=== PATIENT | male | born 1980 | race African-American/Black ===

== ENCOUNTER 2020-10-04 01:51 | Emergency (ER) | payer OTHER ==
[~2020-10-04] VITALS: Ht 172.7 cm; Wt 49.9 kg
[2020-10-04 02:18] LABS: ABSOLUTE NEUTROPHILS 2.4 thou/uL (1.4-8.2); EOSINOPHILS 0.4 % (0.0-3.0); HEMOGLOBIN 10.6 gm/dL (14.0-18.0); LYMPHOCYTES 40.3 % (24.0-44.0); MCH 31.1 pg (26.0-34.0); MCHC 33.2 g/dL (28.0-37.0); MCV 93.7 fL (80.0-100.0); MONOCYTES 10.1 % (1.0-8.0); PLATELET COUNT 310 thou/uL (150-400); POLYS 48.2 % (36.0-66.0); RBC 3.42 mil/uL (4.50-6.00); RDW 16.5 % (10.5-14.5); WBC 4.9 thou/uL (4.0-11.0)
[2020-10-04 02:23] LABS: CREATININE 1.5 mg/dL (0.7-1.3); POTASSIUM 3.6 mmol/L (3.5-5.1)
[2020-10-04 02:29] LABS: ALBUMIN 2.4 g/dL (3.4-5.0); TOTAL BILIRUBIN 0.2 mg/dL (0.2-1.0)
[2020-10-04] MEDS ORDERED: CARVEDILOL6.25 M1 PO (02:39)
[2020-10-04] MEDS ORDERED: AMLODIPINE BESY10 MG PO (02:39)
[2020-10-04 02:54] LABS: URINE BILIRUBIN NEGATIVE (Negative); URINE BLOOD NEGATIVE (Negative); URINE CLARITY CLEAR; URINE COLOR YELLOW; URINE GLUCOSE-RANDOM* 1+ (Negative); URINE KETONES NEGATIVE (Negative); URINE LEUKOCYTES-REFLEX NEGATIVE (Negative); URINE NITRITE-REFLEX NEGATIVE (Negative); URINE PROTEIN (DIPSTICK) NEGATIVE (Negative); URINE SPECIFIC GRAVITY 1.015 (1.005-1.035); URINE UROBILINOGEN 0.2 E.U./dl (0.2-1.0)
[2020-10-04 04:11] VITALS: BP 101/53
--- NOTE | 2020-10-04 06:49 | EKG ---
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 : 1980 Requested By: Derick Isaacs Order Number: [id number] MD: Julian Castanon Measurements Intervals [place] Rate: 120 P: 23 ME: 97 QRS: 56 QRSD: 102 T: 58 QT: 347 QTc: 491 Interpretive Statements Sinus tachycardia Probable left ventricular hypertrophy Borderline prolonged QT interval No previous ECG available for comparison Electronically Signed On 10-04-2020 6:49:16 CDT by Julian Castanon [email or web address] <ELECTRONICALLY SIGNED> By: Julian Castanon MD, [facility] 10/04/20 0649 0208 0208 Julian Castanon MD, FACC /EPI
== END 2020-10-04 04:10 | disposition home or self-care (01) ==
LOC: ER 01:51
PROVIDERS: Emergency Medicine
DX: E11.65 Type 2 diabetes mellitus with hyperglycemia (principal); E86.0 Dehydration; R53.1 Weakness; R11.2 Nausea with vomiting, unspecified; I10 Essential (primary) hypertension; Z79.899 Other long term (current) drug therapy; Z89.511 Acquired absence of right leg below knee

== ENCOUNTER 2020-10-26 08:55 | Inpatient (IN) | payer OTHER ==
[2020-10-26] VITALS (39 sets, daily range): BP systolic 91–134; BP diastolic 61–88
[~2020-10-26] VITALS: Ht 165.1 cm; Wt 49.0 kg
--- NOTE | ~2020-10-26 | EMS ---
[address] [address] EMS Patient Care Report Name: ZACKARY ELLISON Room #: 170-6 ADM IN M.R.#: [id number] Admission: 10/26/20 Attend Phys: Sukhjinder Galloway MD Discharge: Date of : 78 Report #: [id number] THIS REPORT FOR: //name// Report Transmitted: 10/26/2020 11:06 EMS Care Summary [place], [place]/[facility] Incident [id number] @ 10/26/2020 08:19 Incident Location [address] [place] [address] 107 Patient ZACKARY ELLISON Male, 40 Years 1980 Patient Address [address] [place] [address] Patient History Diabetes,Hypertension (HTN),Amputee,Alcohol Abuse, Patient Allergies No known allergies, Patient Medications Lisinopril, Insulin, Lantus, Humalog, Chief Complaint HYPOGLYCEMIA/ ALTERED MENTAL STATUS Disposition Transported [place] Dispatch Reason Diabetic Problem Transported To [facility] Narrative DISPATCHED TO A DIABETIC AT THE [facility]. ARRIVED ON SCENE TO FIND FIRE CREW OBTAINING VITALS AND BLOOD GLUCOSE ON PATIENT LYING SUPINE IN HIS BED. PATIENT WAS UNRESPONSIVE TO PAIN BUT MAINTAINING HIS AIRWAY AND HAD ADEQUATE RESPIRATIONS. [facility] STAFF SAID THEY SPOKE WITH HIM AND HE WAS ACTING [address] [address] EMS Patient Care Report Name: ZACKARY ELLISON Room #: 170-6 [facility] IN [facility]#: [id number] Admission: 10/26/20 Attend Phys: Sukhjinder Galloway MD Discharge: Date of : 78 Report #: [id number] NORMAL AND TALKING WITH THEM AROUND 07:00 THIS MORNING. THEY SAID HE WAS DRINKING LAST NIGHT. WHEN THEY CAME TO CHECK ON HIM JUST PRIOR TO CALLING EMS THEY SAID HE WAS UNRESPONSIVE WITH A BLOOD GLUCOSE OF 41. THEY ADMINISTERED 2 DOSES OF GLUCAGON IM RAISING HIS BLOOD GLUCOSE TO 67 UPON EMS ARRIVAL. PATIENT WAS UNRESPONSIVE TO PAIN. HE WAS LIFTED TO THE COT, SECURED WITH STRAPS, AND MOVED TO THE AMBULANCE. PATIENT VITALS WERE REOBTAINED. AN IV WAS ESTABLISHED, HE WAS PLACED ON A 3 LEAD AND ADMINISTERED D10. PATIENT WAS TRANSPORTED TO THE HOSPITAL WITH VITALS, BLOOD GLUCOSE, AND INTERVENTIONS MONITORED. DURING TRANSPORT PATIENT BEGAN POSTURING, AND HE REMAINED UNRESPONSIVE TO PAIN. TRANSPORT WAS UPGRADED. PATIENT MAINTAINED HIS AIRWAY AND HAD ADEQUATE RESPIRATIONS DURING TRANSPORT. UPON ARRIVAL AT THE HOSPITAL PATIENT WAS MOVED INTO THE ED ON THE COT AND LIFTED OVER TO THE HOSPITAL BED PATIENT CARE WAS TURNED OVER TO ED NURSING STAFF. Initial Vitals @08:34P: 169,SpO2: 93, @08:44P: 118,BP: 134/86,SpO2: 95, @08:36P: 103,BP: 119/79,CO: 9,SpO2: 94, @08:51P: 100, @08:33P: 80,R: 20,BP: 138/80,Pain: 0/10,GCS: 3,Glucose: 67,CO: 11,SpO2: 91,Revised Trauma: 8, @08:50P: 100,R: 24,BP: 136/89,Pain: 0/10,GCS: 5,Glucose: 239,CO: 2,SpO2: 98,Revised Trauma: 9, Assessments @08:27MENTAL:Unresponsive,SKIN:Cold,HEENT:Head/Face: No Abnormalities,Neck/Airway: No Abnormalities,LUNG SOUNDS:General: No Abnormalities,Left Upper: No Abnormalities,Right Upper: No Abnormalities,Left Lower: No Abnormalities,Right Lower: No Abnormalities,ABDOMEN:General: No Abnormalities,Left Upper: No Abnormalities,Right Upper: No Abnormalities,Left Lower: No Abnormalities,Right Lower: No Abnormalities,PELVIS//GI:No Abnormalities,EXTREMITIES:Left Arm: Other,Right Arm: Other,Right Leg: Other,Capillary Refill: Right Upper: 3 Sec,Left Leg: No Abnormalities,PULSE:Radial: 2+ Normal,NEURO:Other, Impression Diabetic Hypoglycemia Procedures @08:5112-Lead ECG@08:27ALS AssessmentResponse: UnchangedSucceeded@08:33Saline Lock 0cc (20 ga) Site: Antecubital-LeftResponse: UnchangedFailed@08:34Saline Lock 10cc (20 ga) Site: Forearm-LeftResponse: UnchangedSucceeded@08:35Dextrose 10% - 125 Milliliters (ml) - Intravenous (IV)Response: Unchanged@08:34Oxygen FlowRate: 4 Device: Nasal Cannula (NC) Response: UnchangedSucceeded@08:333-Lead ECGResponse: UnchangedSucceeded [address] [address] EMS Patient Care Report Name: ARIANNA ELLISONN Basia Room #: 170-6 ADM IN ..#: [id number] Admission: 10/26/20 Attend Phys: Sukhjinder Galloway MD Discharge: Date of : 78 Report #: [id number] Timeline 08:19,Call Received 08:19,Dispatch Notified 08:19,Dispatched 08:21,En Route 08:25,On Scene 08:27,At Patient 08:27,ALS Assessment,Response: UnchangedSucceeded, 08:33,Saline Lock 0cc 20 ga Site: Antecubital-Left,Response: UnchangedFailed, 08:33,3-Lead ECG,Response: UnchangedSucceeded, 08:33,BP: 138/80 M,PULSE: 80,RR: 20 R,SPO2: 91 Ox,ETCO2: ,B,PAIN: 0,GCS: 3, 08:34,Saline Lock 10cc 20 ga Site: Forearm-Left,Response: UnchangedSucceeded, 08:34,Oxygen FlowRate: 4 Device: Nasal Cannula (NC) Response: UnchangedSucceeded, 08:34,BP: / M,PULSE: 169,RR: R,SPO2: 93 Ox,ETCO2: ,BG: ,PAIN: ,GCS: , 08:35,Dextrose 10% - 125 Milliliters (ml) - Intravenous (IV),Response: Unchanged 08:36,BP: 119/79 M,PULSE: 103,RR: R,SPO2: 94 Ox,ETCO2: ,BG: ,PAIN: ,GCS: , 08:40,Depart Scene 08:44,BP: 134/86 M,PULSE: 118,RR: R,SPO2: 95 Ox,ETCO2: ,BG: ,PAIN: ,GCS: , 08:50,BP: 136/89 M,PULSE: 100,RR: 24 R,SPO2: 98 Ox,ETCO2: ,B,PAIN: 0,GCS: 5, 08:51,12-Lead ECG, 08:51,BP: / M,PULSE: 100,RR: R,SPO2: Ox,ETCO2: ,BG: ,PAIN: ,GCS: , 08:51,At Destination 09:19,Call Closed Disclaimer v1.1 Copyright 202 [employer] This EMS Care Summary contains data elements from the applicable legal record (which may be displayed differently). It is designed to provide pertinent information for the following purposes: continuity of care, clinical quality, and state data reporting. The complete legal record is available to ED staff and administrators of the receiving hospital in [employer] Patient Tracker. All data is provided "as is."
--- NOTE | ~2020-10-26 | EEG ---
[facility] [place] [address] ELECTROENCEPHALOGRAM Name: ZACKARY ELLISON Room #: 246-P [facility] IN M.R.#: [id number] Admission: 10/26/20 Attend Phys: Sukhjinder Galloway MD Discharge: Date of : 78 Report #: [id number] THIS REPORT FOR: //name// DOC #: [id number] Ajay Ortega MD DATE OF SERVICE: 11/01/2020 This patient continues with altered mental status. His prior EEGs demonstrate a lot of artifacts. EEG was done to see if a clean EEG can be obtained to better evaluate this patient. This EEG is somewhat better than the last EEG, but still has a lot of muscle artifacts. When the EEG is interpretable, it does show a background activity of about 7 Hz and 10 microvolt. That time there is no epileptiform activity. Photic stimulation is unremarkable. IMPRESSION: This patient's EEG is slow and poorly formed. That can be consistent with encephalopathy. But EEG is still masked by a lot of artifacts, but is better than the prior EEGs. Ajay Ortega MD PK/SERGE By: 1241 1429 Ajay Ortega MD /nt
[~2020-10-26 08:55] MED LIST: AMLODIPINE BESY10 MG PO; CARVEDILOL12.5 MG PO; CARVEDILOL6.25 M1 PO; FREESTYLE LIBR1 EAC2 MISCELL; HUMALOG100 UNIT/1 SUBQ; LANTUS SUBQ
[2020-10-26 09:40] LABS: URINE BILIRUBIN NEGATIVE (Negative); URINE BLOOD NEGATIVE (Negative); URINE CLARITY CLEAR; URINE COLOR YELLOW; URINE GLUCOSE-RANDOM* NEGATIVE (Negative); URINE KETONES NEGATIVE (Negative); URINE LEUKOCYTES-REFLEX NEGATIVE (Negative); URINE NITRITE-REFLEX NEGATIVE (Negative); URINE PROTEIN (DIPSTICK) NEGATIVE (Negative); URINE SPECIFIC GRAVITY 1.015 (1.005-1.035); URINE UROBILINOGEN 0.2 E.U./dl (0.2-1.0)
[2020-10-26 09:47] LABS: ABSOLUTE NEUTROPHILS 2.8 thou/uL (1.4-8.2); BASOPHILS 1.2 % (0.0-2.0); EOSINOPHILS 0.2 % (0.0-3.0); HEMATOCRIT 26.9 % (42.0-52.0); HEMOGLOBIN 8.9 gm/dL (14.0-18.0); LYMPHOCYTES 43.3 % (24.0-44.0); MCH 30.8 pg (26.0-34.0); MCHC 32.9 g/dL (28.0-37.0); MCV 93.7 fL (80.0-100.0); MONOCYTES 5.6 % (1.0-8.0); PLATELET COUNT 615 thou/uL (150-400); POLYS 49.7 % (36.0-66.0); RBC 2.87 mil/uL (4.50-6.00); RDW 15.7 % (10.5-14.5); WBC 5.6 thou/uL (4.0-11.0)
[2020-10-26 09:49] LABS: AMP/METHAMP Negative (Negative); BARBITURATES Negative (Negative); BENZODIAZEPINES Negative (Negative); COCAINE Negative (Negative); METHADONE Negative (Negative); OPIATES Negative (Negative); PCP Negative (Negative)
[2020-10-26 10:01] LABS: ANION GAP 9 mmol/L (7-16); BUN 9 mg/dL (7-18); CALCIUM 8.1 mg/dL (8.5-10.1); CHLORIDE 108 mmol/L (98-107); CO2 22 mmol/L (21-32); CREATININE 0.5 mg/dL (0.7-1.3); GLUCOSE 199 mg/dL (74-106); POTASSIUM 4.7 mmol/L (3.5-5.1); SODIUM 139 mmol/L (136-145)
[2020-10-26 10:05] LABS: APTT 29.7 Seconds (24.5-32.8); INR 1.14; PROTIME 12.3 Seconds (10.5-12.1)
[2020-10-26 10:11] LABS: ALBUMIN 1.9 g/dL (3.4-5.0); DIRECT BILIRUBIN < 0.1 mg/dL (<0.1-0.2); SGOT 26 U/L (15-37); SGPT 34 U/L (30-65); TOTAL BILIRUBIN 0.2 mg/dL (0.2-1.0); TOTAL PROTEIN 5.8 g/dL (6.4-8.2); TROPONIN-I <0.06 ng/mL (<0.06)
[2020-10-26 10:14] LABS: BE(vivo) -3.6 mmol/L (-2 to +3); PCO2 35.9 mmHg (35.0-45.0); PO2 70.3 mmHg (80.0-100.0); pH 7.384 (7.360-7.450); sO2 94.1 % (92.0-98.0)
--- NOTE | 2020-10-26 12:36 | EKG ---
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 : 1980 Requested By: Alberto Saez Order Number: [id number] MD: Marty Goss Measurements Intervals [place] Rate: 108 P: 0 MN: QRS: 66 QRSD: 90 T: QT: 347 QTc: 465 Interpretive Statements Poor quality data, interpretation may be affected Probable sinus tachycardia Compared to ECG 10/13/2020 09:42:24 Recommend repeat tracing in the absence of artifact Electronically Signed On 10-26-2020 12:36:44 CDT by Marty Goss [email or web address] <ELECTRONICALLY SIGNED> By: Marty Goss MD, [facility] 10/26/20 1236 0 0 Marty Goss MD, [facility] /EPI
[2020-10-27] VITALS (39 sets, daily range): BP systolic 94–139; BP diastolic 69–100
[2020-10-27 04:37] LABS: HEMATOCRIT 25.8 % (42.0-52.0); HEMOGLOBIN 8.7 gm/dL (14.0-18.0); MCHC 33.8 g/dL (28.0-37.0); MCV 91.9 fL (80.0-100.0); RBC 2.81 mil/uL (4.50-6.00); RDW 15.4 % (10.5-14.5)
[2020-10-27 04:47] LABS: CALCIUM 7.5 mg/dL (8.5-10.1); CREATININE 0.5 mg/dL (0.7-1.3)
[2020-10-27 04:49] LABS: POTASSIUM 3.4 mmol/L (3.5-5.1)
[2020-10-27 05:31] LABS: WBC 27.4 thou/uL (4.0-11.0)
[2020-10-27 18:57] LABS: HEMATOCRIT 24.3 % (42.0-52.0); HEMOGLOBIN 8.5 gm/dL (14.0-18.0); MCH 32.1 pg (26.0-34.0); MCHC 35.1 g/dL (28.0-37.0); MCV 91.7 fL (80.0-100.0); PLATELET COUNT 590 thou/uL (150-400); RBC 2.65 mil/uL (4.50-6.00); RDW 15.8 % (10.5-14.5); WBC 28.4 thou/uL (4.0-11.0)
[2020-10-27 20:03] LABS: ABSOLUTE NEUTROPHILS 25.6 thou/uL (1.4-8.2)
[2020-10-27 20:06] LABS: PLATELET ESTIMATE INCREASED
[2020-10-28] VITALS (26 sets, daily range): BP systolic 122–173; BP diastolic 78–107
[2020-10-28 05:46] LABS: HEMATOCRIT 25.1 % (42.0-52.0); HEMOGLOBIN 8.4 gm/dL (14.0-18.0); MCH 30.8 pg (26.0-34.0); MCHC 33.6 g/dL (28.0-37.0); MCV 91.8 fL (80.0-100.0); RBC 2.74 mil/uL (4.50-6.00); WBC 23.9 thou/uL (4.0-11.0)
[2020-10-28 05:55] LABS: CALCIUM 7.4 mg/dL (8.5-10.1); CREATININE 0.4 mg/dL (0.7-1.3); POTASSIUM 3.4 mmol/L (3.5-5.1)
[2020-10-29] VITALS (24 sets, daily range): BP systolic 136–169; BP diastolic 88–107
[2020-10-29 05:47] LABS: CALCIUM 7.2 mg/dL (8.5-10.1); CREATININE 0.4 mg/dL (0.7-1.3)
[2020-10-29 05:55] LABS: HEMATOCRIT 24.2 % (42.0-52.0); HEMOGLOBIN 7.9 gm/dL (14.0-18.0); MCH 29.7 pg (26.0-34.0); MCHC 32.5 g/dL (28.0-37.0); MCV 91.6 fL (80.0-100.0); POTASSIUM 2.6 mmol/L (3.5-5.1); RBC 2.64 mil/uL (4.50-6.00); WBC 13.9 thou/uL (4.0-11.0)
[2020-10-29 14:44] LABS: CSF RBC 103 /mm3
[2020-10-29 14:46] LABS: CSF WBC 13 /mm3 (0-10)
[2020-10-29 14:47] LABS: CSF CLARITY CLEAR; CSF COLOR COLORLESS; VOLUME 8 ml
[2020-10-29 14:51] LABS: CSF GLUCOSE 81 mg/dL (40-70); CSF PROTEIN 148 mg/dL (15-45)
[2020-10-29 17:56] LABS: CSF POLYS 79 %
[2020-10-29 17:57] LABS: CSF EOSINOPHILS 3 %; CSF LYMPHOCYTES 16 % (40-80)
[2020-10-30] VITALS (23 sets, daily range): BP systolic 119–159; BP diastolic 73–107
[2020-10-30 06:11] LABS: HEMATOCRIT 25.1 % (42.0-52.0); HEMOGLOBIN 8.3 gm/dL (14.0-18.0); MCH 30.4 pg (26.0-34.0); MCHC 33.3 g/dL (28.0-37.0); MCV 91.4 fL (80.0-100.0); RBC 2.75 mil/uL (4.50-6.00); RDW 15.9 % (10.5-14.5); WBC 7.7 thou/uL (4.0-11.0)
[2020-10-30 06:18] LABS: CALCIUM 7.5 mg/dL (8.5-10.1); CREATININE 0.5 mg/dL (0.7-1.3)
[2020-10-30 09:59] LABS: HSV PCR SOURCE CSF
[2020-10-30 13:09] LABS: ALBUMIN 1.6 g/dL (3.4-5.0); CALCIUM 7.6 mg/dL (8.5-10.1); CREATININE 0.5 mg/dL (0.7-1.3); DIRECT BILIRUBIN 0.1 mg/dL (<0.1-0.2); PHOSPHORUS 2.9 mg/dL (2.5-4.9); POTASSIUM 3.3 mmol/L (3.5-5.1); TOTAL BILIRUBIN 0.2 mg/dL (0.2-1.0); TOTAL PROTEIN 5.2 g/dL (6.4-8.2)
[2020-10-30 13:34] LABS: MAGNESIUM 0.9 mg/dL (1.8-2.4)
[2020-10-31] VITALS (22 sets, daily range): BP systolic 135–172; BP diastolic 82–109
[2020-10-31 07:57] LABS: ALBUMIN 1.6 g/dL (3.4-5.0); CALCIUM 7.6 mg/dL (8.5-10.1); CREATININE 0.5 mg/dL (0.7-1.3); MAGNESIUM 1.9 mg/dL (1.8-2.4); PHOSPHORUS 2.5 mg/dL (2.5-4.9); POTASSIUM 3.4 mmol/L (3.5-5.1); TOTAL BILIRUBIN 0.3 mg/dL (0.2-1.0); TOTAL PROTEIN 5.6 g/dL (6.4-8.2)
--- NOTE | 2020-10-31 14:16 | HC ---
[facility] [place] [address] CONSULTATION Name: ZACKARY ELLISON Room #: 246-P [facility] IN .R.#: [id number] Admission: 10/26/20 Attend Phys: Sukhjinder Galloway MD Discharge: Date of : 78 Report #: [id number] THIS REPORT FOR: cc: FAM - No family physician/PCP FAM - No family physician/PCP Ajay Ortega MD ~ DOC #: [id number] Ajay Ortega MD DATE OF SERVICE: 10/26/2020 HISTORY OF PRESENT ILLNESS: This is a 40-year-old male patient who is unable to provide any history at all. The patient does not say anything and he is pretty much unresponsive. There is no family member here, so I talked to the nurse and reviewing his records. This patient is admitted with hypoglycemia as well as alcohol abuse. He is also running temperature according to the nurses. His last temperature was 100.2, but when he came in, his temperature was normal. REVIEW OF SYSTEMS: A 14-point review of system is positive for diabetes, hypertension, amputations in the leg, alcohol abuse pretty significant, hypoglycemia, drug screen was negative. Even in the Emergency Room, he was not responding to any stimulus. That is the 14-point review of system I can get. PAST MEDICAL HISTORY: Positive for leg amputation and alcohol abuse. FAMILY HISTORY: Unavailable. SOCIAL HISTORY: Positive for alcohol abuse. PHYSICAL EXAMINATION: NEUROLOGIC: This patient did not wake up for me. It looks like when he was admitted, he was tachypneic and he was hypoxic, as per notes plus in the Emergency Room. He was also hypothermic. Now, he does not say anything. He does not have any reflexes. He does not have any meningeal sign, but the rest of the neurological examination was attempted, but is not possible. CARDIAC EXAMINATIONS: Appear unremarkable. VITAL SIGNS: Blood pressure is 109/76, pulse is 109. LABORATORY DATA: White count is normal, but the platelet count is high. He did have actually a CT and as well as a CT angiography as I understand from the record. They were mostly unremarkable. IMPRESSION: This patient presently is severely encephalopathic because of his hypoglycemia, maybe hypoxia and his alcohol intake. I do not think we need to give him any seizure medication at the moment or get an EEG done. Sometime along the line, he will need an MRI whenever he is stable and he is able to cooperate. We will also try to reach the family [place] [address] CONSULTATION Name: ZACKARY ELLISON Room #: 246-P [facility] IN [facility]#: [id number] Admission: 10/26/20 Attend Phys: Sukhjinder Galloway MD Discharge: Date of : 78 Report #: [id number] Thank you very much for this referral. Ajay Ortega MD /MAY/DONTA <ELECTRONICALLY SIGNED> By: Ajay Ortega MD 10/31/20 1416 1716 1113 Ajay Ortega MD /nt
--- NOTE | 2020-10-31 14:17 | EEG ---
[facility] [place] [address] ELECTROENCEPHALOGRAM Name: ZACKARY ELLISON Room #: 246-P [facility] IN M.R.#: [id number] Admission: 10/26/20 Attend Phys: Sukhjinder Galloway MD Discharge: Date of : 78 Report #: [id number] THIS REPORT FOR: //name// DOC #: [id number] Ajay Ortega MD DATE OF SERVICE: 10/28/2020 This EEG was repeated because the first one had a lot of artifact. Unfortunately, this EEG also has a lot of artifact. EEG is masked by a lot of artifact, but small portion of this EEG is interpretable, which shows low voltage activity, which is difficult to determine the frequency. Photic stimulation is unremarkable. IMPRESSION: The EEG continued to be masked by a lot of artifact, but does not appear to be showing any active epileptiform activity. Part of the EEG, which is very small, is interpretable and that is very slow and only have minimal voltage. Thank you very much for this referral. Ajay Ortega MD PK/SERGE <ELECTRONICALLY SIGNED> By: Ajay Ortega MD 10/31/20 1417 1334 1356 Ajay Ortega MD /nt
--- NOTE | 2020-10-31 14:17 | EEG ---
[facility] [place] [address] ELECTROENCEPHALOGRAM Name: ZACKARY ELLISON Room #: 246-P [facility] IN M.R.#: [id number] Admission: 10/26/20 Attend Phys: Sukhjinder Galloway MD Discharge: Date of : 78 Report #: [id number] THIS REPORT FOR: //name// DOC #: [id number] Ajay Ortega MD DATE OF SERVICE: 10/26/2020 This patient is being evaluated for altered mental status. EEG was done by placing the electrode by standard 10-20 system of electrode placement. Both referential and sequential montages were used for recording. Lot of muscle artifact is present. Whenever the EEG is interpretable, it shows a background activity of about 5-6 Hz and 30 microvolt. Photic stimulation is unremarkable. The patient was unresponsive. IMPRESSION: This EEG is intermixed with a lot of artifact. Only a small portion of this EEG is interpretable. That EEG is abnormal, but nonspecifically. That abnormality can occur with dementia, encephalopathy, effect of psychotropic medication, etc. Clinical correlation is recommended. Ajay Ortega MD PK/PUN <ELECTRONICALLY SIGNED> By: Ajay Ortega MD 10/31/20 1417 0937 1001 Ajay Ortega MD /amrik
[2020-11-01] VITALS (16 sets, daily range): BP systolic 124–165; BP diastolic 89–111
[2020-11-01 00:06] LABS: HSV 1 DNA Negative (Negative); HSV 2 DNA Negative (Negative)
[2020-11-01 05:27] LABS: CALCIUM 7.9 mg/dL (8.5-10.1); CREATININE 0.5 mg/dL (0.7-1.3); MAGNESIUM 1.7 mg/dL (1.8-2.4); PHOSPHORUS 3.1 mg/dL (2.5-4.9); POTASSIUM 3.2 mmol/L (3.5-5.1)
[2020-11-01 20:06] LABS: SYPHILIS AB Non Reactive (Non Reactive)
[2020-11-02 07:34] VITALS: BP 150/105
[2020-11-02 08:32] LABS: CALCIUM 8.6 mg/dL (8.5-10.1); CREATININE 0.5 mg/dL (0.7-1.3); MAGNESIUM 1.7 mg/dL (1.8-2.4); PHOSPHORUS 3.1 mg/dL (2.6-4.7)
[2020-11-02 16:23] VITALS: BP 120/71; BP 134/99
[2020-11-02 20:20] VITALS: BP 156/100
[2020-11-03 07:17] LABS: ABSOLUTE NEUTROPHILS 3.5 thou/uL (1.4-8.2); EOSINOPHILS 0.9 % (0.0-3.0); HEMATOCRIT 24.6 % (42.0-52.0); HEMOGLOBIN 8.2 gm/dL (14.0-18.0); LYMPHOCYTES 35.6 % (24.0-44.0); MCH 30.4 pg (26.0-34.0); MCHC 33.4 g/dL (28.0-37.0); MCV 91.1 fL (80.0-100.0); MONOCYTES 14.2 % (1.0-8.0); PLATELET COUNT 533 thou/uL (150-400); POLYS 48.3 % (36.0-66.0); RDW 15.8 % (10.5-14.5); WBC 7.3 thou/uL (4.0-11.0)
[2020-11-03 07:32] LABS: CALCIUM 8.7 mg/dL (8.5-10.1); CREATININE 0.5 mg/dL (0.7-1.3); MAGNESIUM 1.7 mg/dL (1.8-2.4); PHOSPHORUS 3.9 mg/dL (2.6-4.7); POTASSIUM 4.5 mmol/L (3.5-5.1)
[2020-11-03 15:24] VITALS: BP 148/76
[2020-11-03 15:29] VITALS: BP 152/107
[2020-11-03 19:32] VITALS: BP 133/100
[2020-11-04 04:05] VITALS: BP 114/84
[2020-11-04 07:51] LABS: CALCIUM 9.1 mg/dL (8.5-10.1); CREATININE 0.5 mg/dL (0.7-1.3); PHOSPHORUS 3.7 mg/dL (2.6-4.7); POTASSIUM 4.7 mmol/L (3.5-5.1); TOTAL BILIRUBIN 0.2 mg/dL (0.2-1.0); TOTAL PROTEIN 6.6 g/dL (6.4-8.2)
[2020-11-04 17:06] LABS: CSF VDRL Non Reactive (Non Rea:<1:1)
[2020-11-04 18:23] VITALS: BP 158/93
[2020-11-04 19:38] VITALS: BP 159/90
[2020-11-05 04:46] VITALS: BP 154/95
[2020-11-05 06:14] LABS: ALBUMIN 2.1 g/dL (3.4-5.0); CALCIUM 8.7 mg/dL (8.5-10.1); CREATININE 0.5 mg/dL (0.7-1.3); MAGNESIUM 1.6 mg/dL (1.8-2.4); PHOSPHORUS 3.4 mg/dL (2.5-4.9); POTASSIUM 4.5 mmol/L (3.5-5.1); TOTAL BILIRUBIN 0.2 mg/dL (0.2-1.0); TOTAL PROTEIN 6.8 g/dL (6.4-8.2)
[2020-11-05 08:20] VITALS: BP 166/100
[2020-11-05 10:45] VITALS: BP 150/97
[2020-11-05 12:55] LABS: HEMATOCRIT 25.7 % (42.0-52.0); HEMOGLOBIN 8.5 gm/dL (14.0-18.0); MCH 30.8 pg (26.0-34.0); MCHC 32.9 g/dL (28.0-37.0); MCV 93.6 fL (80.0-100.0); RBC 2.75 mil/uL (4.50-6.00); RDW 16.4 % (10.5-14.5); WBC 10.7 thou/uL (4.0-11.0)
[2020-11-05 14:51] LABS: APTT 26.3 Seconds (24.5-32.8); INR 0.9; PROTIME 9.9 Seconds (9.3-11.4)
[2020-11-05 15:50] VITALS: BP 135/77
[2020-11-05 20:19] VITALS: BP 146/95
[2020-11-06 05:00] VITALS: BP 138/95
[2020-11-06 06:16] LABS: ALBUMIN 2.2 g/dL (3.4-5.0); CALCIUM 8.9 mg/dL (8.5-10.1); CREATININE 0.4 mg/dL (0.7-1.3); MAGNESIUM 1.9 mg/dL (1.8-2.4); PHOSPHORUS 3.3 mg/dL (2.5-4.9); POTASSIUM 4.1 mmol/L (3.5-5.1); TOTAL BILIRUBIN 0.2 mg/dL (0.2-1.0); TOTAL PROTEIN 7.1 g/dL (6.4-8.2)
[2020-11-06 08:04] VITALS: BP 133/92
[2020-11-06 12:44] LABS: CSF GLUCOSE 97 mg/dL (40-70); CSF PROTEIN 117 mg/dL (15-45)
[2020-11-06 13:22] LABS: CSF CLARITY CLEAR; CSF COLOR COLORLESS; CSF RBC 66 /mm3; CSF WBC 1 /mm3 (0-10); VOLUME 11 ml
[2020-11-06 15:56] VITALS: BP 131/90
[2020-11-06 19:46] VITALS: BP 120/81
[2020-11-07 02:06] LABS: SERUM ALBUMIN 2.8 g/dL (4.0-5.0)
[2020-11-07 05:05] VITALS: BP 144/80
[2020-11-07 06:40] LABS: CREATININE 0.5 mg/dL (0.7-1.3); MAGNESIUM 1.5 mg/dL (1.8-2.4); PHOSPHORUS 3.7 mg/dL (2.6-4.7)
[2020-11-07 15:42] VITALS: BP 167/107
[2020-11-07 17:16] VITALS: BP 129/96
[2020-11-07 20:11] VITALS: BP 143/107
[2020-11-08 07:45] VITALS: BP 148/84
[2020-11-08 10:11] LABS: CREATININE 0.5 mg/dL (0.7-1.3); MAGNESIUM 1.6 mg/dL (1.8-2.4); POTASSIUM 3.9 mmol/L (3.5-5.1)
[2020-11-08 12:07] LABS: CSF IgG 16.7 mg/dL (0.0-10.3)
[2020-11-08 15:15] VITALS: BP 144/101
[2020-11-08 20:48] VITALS: BP 123/84
[2020-11-09 05:42] LABS: CALCIUM 8.8 mg/dL (8.5-10.1); CREATININE 0.5 mg/dL (0.7-1.3); MAGNESIUM 1.5 mg/dL (1.8-2.4); POTASSIUM 3.8 mmol/L (3.5-5.1)
[2020-11-09 05:54] VITALS: BP 114/76
[2020-11-09 07:50] VITALS: BP 122/84
[2020-11-09 15:40] VITALS: BP 104/61
[2020-11-09] MEDS ORDERED: PEPCID20 MG PER TUBE (17:17)
[2020-11-09] MEDS ORDERED: LANTUS SUBQ (17:17)
== END 2020-11-09 19:39 | DRG 637 ==
LOC: ER 08:55 → ICU 11:31 → EROBS 11:31 → ICU 12:49 → 4S 11-01 18:23
PROVIDERS: Emergency Medicine; Internal Medicine; Internal Medicine Pulmonary Disease; Psychiatry & Neurology Neuromuscular Medicine; Specialist; ADMIT Hospitalist; ATTEND Hospitalist
PROC: 02HV33Z Insertion of Infusion Device into Superior Vena Cava, Percutaneous Approach (ICD-10-PCS; principal; 2020-10-26)
PROC: 009U3ZX Drainage of Spinal Canal, Percutaneous Approach, Diagnostic (ICD-10-PCS; 2020-10-29)
PROC: B01B1ZZ Fluoroscopy of Spinal Cord using Low Osmolar Contrast (ICD-10-PCS; 2020-10-29)
PROC: 009U3ZX Drainage of Spinal Canal, Percutaneous Approach, Diagnostic (ICD-10-PCS; 2020-11-06)
PROC: B01B1ZZ Fluoroscopy of Spinal Cord using Low Osmolar Contrast (ICD-10-PCS; 2020-11-06)
PROC: 0DH68UZ Insertion of Feeding Device into Stomach, Via Natural or Artificial Opening Endoscopic (ICD-10-PCS; 2020-11-07)
DX: E11.10 Type 2 diabetes mellitus with ketoacidosis without coma (principal); J96.01 Acute respiratory failure with hypoxia; E43 Unspecified severe protein-calorie malnutrition; G92 Toxic encephalopathy; E87.2 Acidosis; I10 Essential (primary) hypertension; T68.XXXA Hypothermia, initial encounter; F10.129 Alcohol abuse with intoxication, unspecified; E11.51 Type 2 diabetes mellitus with diabetic peripheral angiopathy without gangrene; D72.829 Elevated white blood cell count, unspecified; R13.10 Dysphagia, unspecified; Z20.822 Contact with and (suspected) exposure to COVID-19; Z89.511 Acquired absence of right leg below knee; Z79.4 Long term (current) use of insulin; Z79.899 Other long term (current) drug therapy
CPT/HCPCS: 10078; 10102; 27000; 62110; 62900; 70005

== ENCOUNTER 2020-11-19 14:13 | Inpatient (IN) | payer OTHER ==
[~2020-11-19] VITALS: Ht 175.3 cm; Wt 63.5 kg
[~2020-11-19 14:13] MED LIST changes: +PEPCID20 MG PER TUBE
[2020-11-19 14:14] VITALS: BP 136/73
[2020-11-19 15:47] LABS: LYMPHOCYTES 14.3 % (24.0-44.0)
[2020-11-19 15:49] LABS: ABSOLUTE NEUTROPHILS 8.1 thou/uL (1.4-8.2); BASOPHILS 0.5 % (0.0-2.0); HEMATOCRIT 22.5 % (42.0-52.0); HEMOGLOBIN 7.5 gm/dL (14.0-18.0); MCH 30.4 pg (26.0-34.0); MCHC 33.3 g/dL (28.0-37.0); MCV 91.2 fL (80.0-100.0); MONOCYTES 8.4 % (1.0-8.0); POLYS 74.8 % (36.0-66.0); RBC 2.47 mil/uL (4.50-6.00); RDW 15.7 % (10.5-14.5); WBC 10.9 thou/uL (4.0-11.0)
[2020-11-19 15:51] LABS: CALCIUM 9.8 mg/dL (8.5-10.1); CREATININE 0.7 mg/dL (0.7-1.3); POTASSIUM 5.4 mmol/L (3.5-5.1)
[2020-11-19 15:57] LABS: ALBUMIN 2.3 g/dL (3.4-5.0); TOTAL BILIRUBIN 0.1 mg/dL (0.2-1.0); TOTAL PROTEIN 8.2 g/dL (6.4-8.2)
[2020-11-19 16:19] LABS: ANISOCYTOSIS SLIGHT
[2020-11-19 16:21] LABS: PLATELET COUNT 1032 thou/uL (150-400)
[2020-11-19 16:44] VITALS: BP 114/70
--- NOTE | 2020-11-19 19:08 | NUR ---
Pt transfered from ER. His blood dugar was 34. Administered glucagon and blood sugar came up to 78. Started running NS .9% AT 75ml/hour. Pt was biting at dressing on hands bilaterally. Redressed. Middle knuckle on right side has bone sticking out. He remains a full code. Will need to call mother (Yanet) at [phone] to get admission information.
[2020-11-19 19:25] VITALS: BP 119/93
[2020-11-20 02:16] LABS: HEMOGLOBIN 7.3 gm/dL (14.0-18.0); MCV 91.5 fL (80.0-100.0); MONOCYTES 8.3 % (1.0-8.0); WBC 14.7 thou/uL (4.0-11.0)
[2020-11-20 02:18] LABS: ABSOLUTE NEUTROPHILS 11.1 thou/uL (1.4-8.2); BASOPHILS 0.4 % (0.0-2.0); EOSINOPHILS 1.3 % (0.0-3.0); HEMATOCRIT 21.3 % (42.0-52.0); MCH 31.3 pg (26.0-34.0); MCHC 34.2 g/dL (28.0-37.0); RBC 2.32 mil/uL (4.50-6.00); RDW 15.7 % (10.5-14.5)
[2020-11-20 02:25] LABS: CALCIUM 9.4 mg/dL (8.5-10.1); CREATININE 0.5 mg/dL (0.7-1.3); MAGNESIUM 1.8 mg/dL (1.8-2.4); POTASSIUM 4.8 mmol/L (3.5-5.1)
[2020-11-20 02:26] LABS: PLATELET COUNT 993 thou/uL (150-400)
--- NOTE | 2020-11-20 03:04 | NUR ---
ASSUMED PT CARE AT 1900.PT WAS OBSERVED LYING ON HIS BED TAKING THE DRSG TO HIS FREDY HANDS OFF.ADMISSION COMPLETED WITH THE HELP OF HIS MOM.PTCONSISTENTLY BITES ON HIS HAND.ALL EFFORTS TO REDIRECT HIM DID NOT WORK.CHILD CARE DEVELOPMENT SPECIALIST ON DUTY NOTIFIED,EULA NOTED FOR MITTENS TO BE USED.PT'S BG LOW PRN ORDER FOLLOWED.PT STABLE NOW.PT NPO FOR POSSIBLE SURGERY TODAY.PT ABLE TO REPOSITION SELF IN BED.CALL LIGHT WITHIN REACH.
[2020-11-20 04:11] VITALS: BP 129/86
[2020-11-20 07:25] VITALS: BP 129/88
--- NOTE | 2020-11-20 09:48 | NUR ---
Assumed care of pt at 0700. Pt confused and restless. Pt tries to bite through the mittens. New dressing and new mittens applied on bilateral hands. IVF infusing. PEG tube in place. Pt taken to surgery for rt third digit amputation on his rt hand. Fall precautions in place.
--- NOTE | 2020-11-20 13:27 | NUR ---
Triggered for high nutrition risk. Pt with recent admission and continues with PEG. Currently undergoing surgical amputation of finger and is NPO. If PEG to be used, recommend same formula and rate as last admission based on no significant changes to estimated nutrition needs. Will follow up tomorrow, 11/21/20 when more information is available.
[2020-11-20 14:04] VITALS: BP 115/80
--- NOTE | 2020-11-20 14:14 | NUR ---
ASSESSMENT: CM REVIEWED CHART. PT IS FROM [facility]. PT WAS ADMITTED DUE TO FINGER WOUNDS CAUSED BY SELF WITH BONE EXPOSED. PT HAD RIGHT LONG FINGER AMPUTATED TODAY. PT IS CURRENTLY ON IV ANBX. SANJAY REACHED OUT TO LIASON AT [facility] WHO REPORTS PT HAS BEEN THERE LTC AND IN WHEELCHAIR AT [facility]. SHE REPORTS THIS BEHAVIOR HAS BEEN NEW. PT HAS PAST HX OF ALCOHOL ABUSE AND PT IS CURRENTLY NON-VERBAL. PT REMAINS ENCEPHALOPATHIC. SANJAY SPOKE WITH ATTENDING WHO REPORTS PATIENT WAS MADE DNR TODAY AND DISCUSSED POSSIBLE HOSPICE WITH MOTHER. CM REACHED OUT TO PATIENT MOTHER NICK TO CONFIRM INFORMATION. SHE REPORTS SHE WOULD LIKE TO KNOW MORE ABOUT HOSPICE AND IS AGREEABLE TO HAVING AN INFORMAITONAL VISIT AND HAS NO PREFERENCE OF HOSPICE COMPANY. CM REACHING OUT TO [facility] TO SEE IF THEY HAVE ANY SPECIFIC HOSPICE THEY USE. SAJNAY WILL CONTINUE TO FOLLOW.
[2020-11-20 15:08] VITALS: BP 118/91
--- NOTE | 2020-11-20 16:14 | NUR ---
WOUND CONSULT; CAME TO ASSESS THE HANDS. RN REPORTED SURGERY TODAY. I WILL F/U WITH THIS PATIENT TOMORROW.
[2020-11-20 21:52] VITALS: BP 106/25
[2020-11-21] VITALS: BP 110/31
[2020-11-21 02:50] VITALS: BP 109/72
--- NOTE | 2020-11-21 02:56 | NUR ---
ASSESSED AT START OF SHIFT 1900. PT IN BED ATTEMPTING TO BITE OFF MITTEN. LORAZEPAM GIVEN FOR RESTLESSNESS. IV INTACT AND FLUIDS INFUSING. BILL MITTENS ON BOTH UPPER EXT. BSG CHECKED. PT INCONTINENT. REPOSITIONED FOR COMFORT. FALL PREC IN PLACE AND CALL LIGHT AT REACH WILL CONT TO MONITOR.
--- NOTE | 2020-11-21 09:02 | NUR ---
Start Glucerna 1.2 @ 30mL/hr and progress as tolerated to goal rate 60ml/hr with water flushes 150ml every 6hr.
--- NOTE | 2020-11-21 09:06 | NUR ---
Consider adding MVI and thiamine r/t ETOH hx.
--- NOTE | 2020-11-21 13:03 | NUR ---
WOUND CONSULT; THE PATIENT IS A 40Y OLD MALE WITH HISTORY SELF MUTILATING WOUNDS SECONDARY TO HX OF ALCOHOLIC ENCEPHALOPATHY. CURRENTLY STAFF HAVE EMPOLYED MITTENS FOR THE PATIENTS PROTECTION WHICH ARE EFFECTIVE. NO S/S OF INFECTION. THE RIGHT 2ND DIDGET WAS AMPUTATED. THE ISCISION LINE IS INTACT/STABLE. STABLE SUTURES WITH NO DRAINAGE SEEN. RECOMMENDATION; -APPLY SILVER FOAM TO AREAS TO THE HANDS BILATERALLY. CHANGE M/W/F PRN. -CONTINUE MITTENS. RN PRESENT.
[2020-11-21] MEDS ORDERED: MIRALAX17 GM PER TUBE (14:20)
[2020-11-21] MEDS ORDERED: ACETAMINOPHEN325 M1 PO (14:20)
[2020-11-21] MEDS ORDERED: CHLORPROMAZINE25 M1 PO (14:20)
--- NOTE | 2020-11-21 14:43 | NUR ---
ON-GOING ASSESSMENT: CM REVIEWED CHART AND SPOKE WITH ATTENDING. SANJAY SPOKE WITH DAPHNE HUDDLESTON FROM [facility] WHO SPOKE WITH PATIENTS MOTHER THIS AM AND REPORT SHE IS WANTING PATIENT TO RETURN BACK TO [facility] WITH HOSPICE. CM NOTIFIED ATTENDING AND PT IS TO RETURN TO [facility]. CM SPOKE WITH DAPHNE HUDDLESTON WHO REPORTS HE CAN MEET WITH PATIENT ONCE HE RETURNS TO HIS FACILITY FOR EVAL AND ADMIT. CM FAXED DISCHARGE PAPERWORK TO [facility] AND CONFIRMED THEY RECEIVED IT. SANJAY SPOKE WITH SERVANDO AT [facility] WHO HAS ARRANGED TRANSPORTATION FOR PATIENT FOR [phone]. BEDSIDE RN IS AWARE AND CM LEFT A VM WITH PTS MOTHER. CM ALSO NOTIFIED LIASON FROM [facility] OF TRANSPORT TIME. CHART COPY WAS ORDERED. CM ALSO FAXED DISCHARGE PAPERWORK TO [facility]. PT HAS NO FURTHER NEEDS FROM CM PRIOR TO DISCHARGE. BEDSIDE RN HAS THE NUMBER FOR REPORT.
--- NOTE | 2020-11-21 15:38 | NUR ---
PT ASSESSED AT START OF SHIFT. PT SAYING SOME WORDS BUT IS NOT ORIENTED EXCEPT TO SELF. MOVES SELF AROUND IN THE BED. WOUND CARE DONE BY WOUND RN. FREDY HAND MITTENS ON FOR SAFETY. IV SITE LEAKING SO DC'D. IV TEAM COMING TO RESTART FOR IV ANTIBIOTIC PRIOR TO PT DISCHARGE. PT TRANSFERRING BACK TO HIS FACILITY WHERE HOSPICE CARE WILL START PER MOTHER REQUEST.
--- NOTE | 2020-11-21 19:10 | NUR ---
PT DC'D AT THIS TIME BACK TO FACILITY PER STRETCHER VAN
--- NOTE | 2020-11-22 22:19 | O ---
[facility] [place] [address] OPERATIVE REPORT Name: ZACKARY ELLISON Room #: 435-P [facility] IN M.R.#: [id number] Admission: 11/19/20 Attend Phys: Surya Serrano MD Discharge: 11/21/20 Date of : 78 Report #: [id number] THIS REPORT FOR: cc: PRICE - No family physician/PCP FAM - No family physician/PCP Logan Borja MD ~ DOC #: [id number] Logan Borja MD DATE OF SERVICE: 11/19/2020 SERVICE: Orthopedics. FACILITY: [facility]. SURGEON: Logan Borja MD DIRECTOR OF COLLECTIONS: Addis Lopez NP PREOPERATIVE DIAGNOSES: 1. Osteomyelitis, right index proximal phalanx. 2. Septic joint, proximal interphalangeal joint, long finger. 3. Chronic wounds, right hand. 4. Alcoholic encephalopathy. 5. History of self-inflicted oral trauma to digits. POSTOPERATIVE DIAGNOSES: 1. Osteomyelitis, right index proximal phalanx. 2. Septic joint, proximal interphalangeal joint, long finger. 3. Chronic wounds, right hand. 4. Alcoholic encephalopathy. 5. History of self-inflicted oral trauma to digits. PROCEDURE: Right long finger amputation. COMPLICATIONS: None. DRAINS: None. SPECIMEN: Long finger. HISTORY: The patient is a gentleman with significant medical issues including diabetes and history of alcoholic encephalopathy, who chewed out his fingers and chewed the flush down to the bone in the joint and exposed proximal phalanx of the right long finger and is indicated for definitive surgical treatment. He had two other digits removed for this reason. Risks, benefits, alternatives and indications were discussed with his mother, who gave full informed consent. [address] [address] OPERATIVE REPORT Name: ZACKARY ELLISON Room #: 435-P [facility] IN M.R.#: [id number] Admission: 11/19/20 Attend Phys: Surya Serrano MD Discharge: 11/21/20 Date of : 78 Report #: [id number] PROCEDURE IN DETAIL: After the right hand was correctly identified, the patient was taken to the operating room where general anesthesia was induced. Right upper extremity was prepped and draped in standard sterile fashion. Timeout procedure performed. Esmarch tourniquet was used at the level of the forearm. A fishmouth-type skin incision was made over the base of the proximal phalanx and dissection was taken down to the bone. The periosteum was dissected and then a bone cutter was used to resect the proximal phalanx close to its base and a clean portion of the finger. The finger was then passed off for specimen. The rasp and rongeur were used to remove any sharp edges and then the deep soft tissue was closed over the end of the bone with a 3-0 chromic suture. A deep stitch layer with chromic was applied and then a skin closure with horizontal mattress sutures were placed with the chromic suture. A well-padded nonstick sterile dressing was applied, followed by Kerlix and Cole wrap and then the patient was placed back in his mittens for protection. The patient was awakened from anesthesia and taken to recovery room in stable condition. No complications. All counts were correct. Logan Borja MD MPM/WHITNEY <ELECTRONICALLY SIGNED> By: Logan Borja MD 11/22/20 2219 1138 1246 Logan Borja MD /nt
== END 2020-11-21 19:10 | DRG 853 ==
LOC: ER 14:13 → EROBS 16:33 → 4S 17:27
PROVIDERS: Emergency Medicine Emergency Medical Services; Nurse Practitioner; ADMIT Internal Medicine; ATTEND Internal Medicine
PROC: 0X6Q0Z1 Detachment at Right Middle Finger, High, Open Approach (ICD-10-PCS; principal; 2020-11-19)
DX: A41.9 Sepsis, unspecified organism (principal); E43 Unspecified severe protein-calorie malnutrition; G92 Toxic encephalopathy; E87.1 Hypo-osmolality and hyponatremia; E11.52 Type 2 diabetes mellitus with diabetic peripheral angiopathy with gangrene; I96 Gangrene, not elsewhere classified; M86.8X4 Other osteomyelitis, hand; S68.119A Complete traumatic metacarpophalangeal amputation of unspecified finger, initial encounter; Z89.511 Acquired absence of right leg below knee; I10 Essential (primary) hypertension; G31.2 Degeneration of nervous system due to alcohol; E11.69 Type 2 diabetes mellitus with other specified complication; L03.011 Cellulitis of right finger; D69.6 Thrombocytopenia, unspecified; E87.5 Hyperkalemia; G40.409 Other generalized epilepsy and epileptic syndromes, not intractable, without status epilepticus; D63.8 Anemia in other chronic diseases classified elsewhere; Z79.899 Other long term (current) drug therapy; X58.XXXA Exposure to other specified factors, initial encounter; Z68.20 Body mass index [BMI] 20.0-20.9, adult; Y93.89 Activity, other specified; Y92.89 Other specified places as the place of occurrence of the external cause; Y99.8 Other external cause status
CPT/HCPCS: 10195; 50010; 50101; 50386; 56526; 57091; 62110; 62900; 70005